=== PATIENT | male | born 1990 | race African-American/Black ===

== ENCOUNTER 2019-02-13 03:39 | Emergency (ER) | payer OTHER ==
[2019-02-13] MEDS ORDERED: Mag-Al 1200 mg/1200 mg/30 ML UDCUP ONE (03:47)
[2019-02-13] MEDS ORDERED: Lidocaine Viscous Sol 2% 15 ml UD Cup ONE (03:47)
== END 2019-02-13 03:52 ==
LOC: ERS 03:39
DX: J02.9 Acute pharyngitis, unspecified (principal)
CPT/HCPCS: 99283